=== PATIENT | male | born 1955 | race Caucasian/White ===

== ENCOUNTER 2018-06-18 21:57 | Emergency (ER) | payer BC ==
[2018-06-18 21:58] VITALS: Ht 170.2 cm
[2018-06-18 23:23] VITALS: BP 158/97
== END 2018-06-18 23:23 | disposition home or self-care (01) ==
LOC: ED 21:57
DX: S00.81XD Abrasion of other part of head, subsequent encounter (principal); E78.00 Pure hypercholesterolemia, unspecified; X58.XXXD Exposure to other specified factors, subsequent encounter